=== PATIENT | male | born 1975 | race Caucasian/White ===

== ENCOUNTER 2016-04-03 09:20 | Emergency (ER) | payer OTHER ==
[2016-04-03 09:29] VITALS: BP 131/74
[2016-04-03] MEDS ORDERED: ROCEPHIN IM ONE (09:41)
[2016-04-03] MEDS ORDERED: XYLOCAINE-MPF 1% INJ ONE (09:41)
--- NOTE | 2016-04-03 09:48 | PROVIDER DOCUMENTATION ---
HPI-Musculoskeletal Pain/Inj - GENERAL Chief Complaint: Post Op Complaint Stated Complaint: POST OP COMPLAINT Time Seen by Provider: 04/03/16 09:36 Source: patient - HX OF PRESENT ILLNESS-MUSKULOSKELTAL Nature of Presenting Problem: Pt is 41 y/o M presents to the ED with infection to post op on ingrown toe nail. Pt states having ingrown toe nail surgery 6 day ago. Pt states he can not remember the physicians name but it was done at the [facility]. Pt states pain and redness started this am. Quality of Pain: reports: aching Severity in ED: mild Onset/Duration: this morning Timing: still present Modifying Factors: improves with: nothing Any recent injury?: No Locality of Occurance: Home Similar Symptoms Previously?: No Recently seen or treated by another doctor?: No - FALL INJURY Location of Pain/Injury: reports: none - LOWER EXTREMITY PAIN/INJURY Lower Extremities Pain: 1st toe: left (pain, swelling and redness at base of toenail ) Context / Method of Injury: reports: unknown Associated Symptoms: reports: weakness in legs/feet (L foot). denies: loss of bladder control, loss of bowel control, lower back pain, muscle spasms, numbness in legs/feet, sensory/motor loss, tingling in legs/feet Review of Systems - Adult - REVIEW OF SYSTEMS - ADULT Constitutional: denies: chills, fever Eyes: denies: blurred vision, double vision Ears, Nose, Mouth & Throat: denies: ear pain, nose pain, throat pain Cardiovascular: denies: chest pain, heart murmur, irregular heart rate Respiratory: denies: cough, shortness of breath, wheezing Gastrointestinal: denies: abdominal pain, diarrhea, nausea, vomiting Genitourinary: denies: dysuria, hematuria Musculoskeletal: reports: other (L big toe pain). denies: bone pain, joint pain , neck pain Integumentary: denies: hives, itching Neurological: denies: dizziness/vertigo, headache/migraines Psychiatric: reports: no symptoms reported Endocrine: reports: no symptoms reported Hematologic/Lymphatic: reports: no symptoms reported Allergic/Immunologic: reports: no symptoms reported All Other Systems: Reviewed and Negative Past History - Adult - PAST MEDICAL HISTORY-ADULT Review of Records: reports: Nursing Assessment Review, Medications Reviewed, Social history reviewed & non-contributory. Major Childhood Illnesses: reports: denies history Cardiovascular: reports: denies history Respiratory: reports: denies history Gastrointestinal: reports: denies history Obstetrical/Gynecological: reports: denies history Genitourinary: reports: denies history Musculoskeletal: reports: other (left knee torn ligament from accident in [place] ( )) Neurological: reports: denies history Psychiatric: reports: ptsd Endocrine/Immune: reports: thyroid disorder Other Conditions: reports: denies history - PRIOR SURGERIES/PROCEDURES Surgical/Procedure History: reports: orthopedic (extremity) (L wrist and knee ) - IMMUNIZATION STATUS Childhood Immunizations: See Nurse Assessment Flu Vaccine: See Nurse Assessment - FAMILY HISTORY Family History: reviewed, not pertinent - SOCIAL HISTORY Smoking: cigarettes, greater than 1 pack/day Provider spent 3-5 mins advising pt. on dangers of tobacco.: Discussed manners to quit use, and f/u contacts for add'l counseling. Substance Use: denies Living Situation: family Physical Exam-Injury Related - Physical Exam-Injury Related Initial Vital Signs Reviewed: Yes General Appearance: appears well, alert, no apparent distress Eyes: PERRL/EOMI, pink conjunctivae, fundi clear, no AV nicking Head, Ears, Nose, Mouth & Throat: normocephalic/atraumatic, moist mucous membranes, normal ENT inspection, TMs normal, pharynx normal Neck: non-tender, full range of motion, supple, normal inspection Respiratory: chest non-tender, lungs clear, normal breath sounds, no pleuratic chest pain, no respiratory distress, no accessory muscle use Cardiovascular: normal peripheral pulses, regular rate, rhythm, no edema, no gallop, no JVD, no murmur Abdominal Exam: normal bowel sounds, non tender, soft, no organomegaly, no pulsatile mass Lymphatic: no adenopathy Back Exam: normal inspection, no CVA tenderness, no vertebral tenderness Extremity: normal range of motion, no pedal edema, no calf tenderness, normal capillary refill, pelvis stable, tenderness (L great toe) Integumentary: normal color, warm/dry, erythema (L great toe), swelling (L great toe), tenderness (L great toe) 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, grossly normal, no motor/sensory deficits Psych/Mental Status: normal mood/affect, normal thought content, normal thought process, oriented x 3 Progress - PLAN OF CARE/RESULTS Progress/Plan/Lab Results: Orders Category Date Time Status CefTRIAXONE [Rocephin] Med 04/03/16 09:41 Discontinued 1 gm IM NOW ONE Lidocaine 1% Pf [Xylocaine-Mpf 1%] Med 04/03/16 09:41 Discontinued 5 ml INJ NOW ONE Vital Signs - 24 hr 04/03/16 09:25 Temperature 97.6 F Pulse Rate 73 Respiratory 18 Rate Blood Pressure 131/74 O2 Sat by Pulse 99 Oximetry Departure - Departure Time of Disposition Order: 09:49 DIAGNOSIS: Cellulitis of great toe of left foot Disposition: HOME 01 Certified Medical Emergency: Emergent Condition: Stable Additional Instructions: ED Follow Up Instructions: You have been treated by a care provider in the Emergency Department. These instructions are being provided to you so you can have an understanding of how to care for yourself upon discharge. Upon discharge from the Emergency Department, you are responsible for making arrangements for follow-up care by a physician of your choice. Take all prescribed medications as directed. Return to the Emergency Department immediately for any new or worsening symptoms. You may call the Physician Referral phone number at [phone] to obtain a list of Physicians who are taking new patients. Forms: Return to School/Parent Work Attestation - Scribe Verification/Attestation Scribe:: Johana Fernandez Acting as Scribe for:: Tatum Koenig Scribe documention review:: This chart was documented by a scribe and accurately reflects the service the provider performed and the decisions made by the provider.
== END 2016-04-03 10:15 | disposition home or self-care (01) ==
LOC: P.ED 09:20
DX: L03.032 Cellulitis of left toe (principal); M79.675 Pain in left toe(s); L53.9 Erythematous condition, unspecified; R22.42 Localized swelling, mass and lump, left lower limb; M62.81 Muscle weakness (generalized); F43.10 Post-traumatic stress disorder, unspecified; F17.210 Nicotine dependence, cigarettes, uncomplicated; Z79.899 Other long term (current) drug therapy; Z71.6 Tobacco abuse counseling; Z98.890 Other specified postprocedural states
CPT/HCPCS: 96372; J0696